=== PATIENT | female | born 1940 | race Caucasian/White ===

== ENCOUNTER 2017-11-11 10:32 | Inpatient (IN) | payer MEDICARE, BC ==
[~2017-11-11] VITALS: Ht 160 cm; Wt 81.8 kg
[2017-11-11 11:26] LABS: BASOPHILS # (AUTO) 0.2 X10'3 (0-0.2); BASOPHILS % (AUTO) 1.8 % (0-1); EOSINOPHILS # (AUTO) 0.1 X10'3 (0-0.9); EOSINOPHILS % (AUTO) 1.2 % (0-6); HEMOGLOBIN 13.7 g/dl (12.0-16.0); LYMPHOCYTES # (AUTO) 2.4 X10'3 (1.1-4.8); MEAN CORPUSCULAR HEMOGLOBIN 25.7 PG (27.0-31.0); MEAN CORPUSCULAR HGB CONC 33.5 % (33.0-36.5); MEAN CORPUSCULAR VOLUME 76.9 FL (78-98); MONOCYTES # (AUTO) 0.5 X10'3 (0-0.9); MONOCYTES % (AUTO) 5.2 % (2-12); NEUTROPHILS # (AUTO) 6.7 X10'3 (1.8-7.7); NEUTROPHILS % (AUTO) 67.8 % (42-75); PLATELET COUNT 305 X10'3 (140-440); RED BLOOD COUNT 5.34 X10'6 (4.20-5.60); RED CELL DISTRIBUTION WIDTH 15.7 % (11.5-14.5); WHITE BLOOD COUNT 9.9 X10'3 (4.5-11.0)
[2017-11-11 11:36] LABS: PARTIAL THROMBOPLASTIN TIME 23 SECONDS (22-32); PROTHROMBIN TIME 10.1 SECONDS (9.0-12.0)
[2017-11-11 11:40] LABS: ALANINE AMINOTRANSFERASE 25 U/L (12-78); ALBUMIN 3.6 G/DL (3.4-5.0); ALBUMIN/GLOBULIN RATIO 0.9 (1.1-1.5); ALKALINE PHOSPHATASE 99 IU/L (46-116); ANION GAP 8 (8-16); ASPARTATE AMINO TRANSFERASE 21 U/L (10-37); BILIRUBIN,TOTAL 0.5 MG/DL (0.1-1.0); BLOOD UREA NITROGEN 21 MG/DL (7-18); BUN/CREATININE RATIO 17.8 (6.6-38.0); CALCIUM 9.4 MG/DL (8.5-10.1); CHLORIDE 99 MMOL/L (99-107); CREATININE 1.18 MG/DL (0.40-0.90); GLUCOSE 148 MG/DL (70-104); POTASSIUM 3.7 MMOL/L (3.5-5.1); SODIUM 137 MMOL/L (135-145); TOTAL CARBON DIOXIDE 29.9 MMOL/L (24-32); TOTAL PROTEIN 7.7 G/DL (6.4-8.2); eGFR 44 ML/MIN
[2017-11-11] MEDS ORDERED: potassium Cl 40MEQ/NS 500ml 500 ML IV PRN ×2 (12:45)
[2017-11-11] MEDS ORDERED: magnesium hydroxide 30ml (MOM) UD suspension PO PRN (12:45)
[2017-11-11] MEDS ORDERED: magnesium 2GM in 50ml NS 50 ML IV PRN (12:45)
[2017-11-11] MEDS ORDERED: magnesium 4gm in 100ml NS 100 ML IV PRN (12:45)
[2017-11-11] MEDS ORDERED: potassium Cl 20 mEq SR tablet PO PRN ×2 (12:45)
[2017-11-11] MEDS ORDERED: morphine 4 MG/ML inj SYRINge IV PRN (12:45)
[2017-11-11] MEDS ORDERED: acetaminophen 325mg tablet PO PRN (12:45)
[2017-11-11] MEDS ORDERED: mag hydrox/Alum hydrox/simeth 30ml oral suspension PO PRN (12:45)
[2017-11-11] MEDS ORDERED: magnesium Cl slow-release 64mg tablet PO PRN (12:45)
[2017-11-11] MEDS ORDERED: HYDROcodone/acetaminophen 5mg/325mg tablet PO PRN (12:45)
[2017-11-11] MEDS ORDERED: ondansetron/PF 4mg/2ml inj IV PRN (12:45)
[2017-11-11] MEDS ORDERED: HYDROcodone/acetaminophen 10/325mg tab PO PRN (12:45)
[2017-11-11] MEDS: normal saline 1000ml 1,000 ML IV SCH ×2 (13:20→20:36)
[2017-11-11] MEDS ORDERED: ESOM40CA30 PO (13:28)
[2017-11-11] MEDS ORDERED: VALS320T13 PO (13:29)
[2017-11-11] MEDS ORDERED: ROSU5TAB PO (13:30)
[2017-11-11] MEDS ORDERED: CHOL5000 PO (13:31)
[2017-11-11] MEDS ORDERED: ROSU10TA PO (13:31)
[2017-11-11] MEDS ORDERED: LEVO125T PO (13:31)
[2017-11-11] MEDS ORDERED: IBUP100O19 PO (13:32)
[2017-11-11] MEDS ORDERED: IBUP-2264 PO (17:00)
[2017-11-11 20:05] VITALS: BP 160/78
[2017-11-12 02:30] VITALS: BP 129/71
[2017-11-12 05:00] VITALS: BP 133/63
[2017-11-12 05:40] LABS: BASOPHILS % (AUTO) 0.4 % (0-1); EOSINOPHILS # (AUTO) 0.2 X10'3 (0-0.9); HEMATOCRIT 38.5 % (35.0-45.0); HEMOGLOBIN 13.1 g/dl (12.0-16.0); MEAN CORPUSCULAR HEMOGLOBIN 26.2 PG (27.0-31.0); MEAN CORPUSCULAR HGB CONC 34.1 % (33.0-36.5); MONOCYTES # (AUTO) 0.6 X10'3 (0-0.9); MONOCYTES % (AUTO) 6.3 % (2-12); NEUTROPHILS # (AUTO) 6.5 X10'3 (1.8-7.7); NEUTROPHILS % (AUTO) 69.3 % (42-75); PLATELET COUNT 282 X10'3 (140-440); RED CELL DISTRIBUTION WIDTH 14.8 % (11.5-14.5); WHITE BLOOD COUNT 9.3 X10'3 (4.5-11.0)
[2017-11-12 05:45] LABS: PROTHROMBIN TIME 10.4 SECONDS (9.0-12.0)
[2017-11-12 05:58] LABS: ANION GAP 7 (8-16); BLOOD UREA NITROGEN 21 MG/DL (7-18); BUN/CREATININE RATIO 19.8 (6.6-38.0); CHLORIDE 102 MMOL/L (99-107); CREATININE 1.06 MG/DL (0.40-0.90); GLUCOSE 104 MG/DL (70-104); MAGNESIUM 1.9 MG/DL (1.5-2.4); POTASSIUM 3.7 MMOL/L (3.5-5.1); SODIUM 140 MMOL/L (135-145); TOTAL CARBON DIOXIDE 30.8 MMOL/L (24-32); eGFR 50 ML/MIN
[2017-11-12] MEDS ORDERED: K and/or MAG REPLACEMENT MC SCH (08:00)
[2017-11-12] MEDS ORDERED: pantoprazole 40 MG vial IV SCH (08:00)
[2017-11-12] MEDS ORDERED: lisinopril 10 MG tablet PO SCH (08:00)
[2017-11-12] MEDS ORDERED: levoTHYROXINE 125mcg tablet PO SCH (08:00)
[2017-11-12 10:00] VITALS: BP_SYST 132; BP_SYST 134; BP_SYST 139; BP_DIAS 64; BP_DIAS 67; BP_DIAS 69
[2017-11-12] MEDS ORDERED: atorvastatin 20mg tablet PO SCH (17:00)
[2017-11-13] MEDS ORDERED: non-formulary drug (Esomeprazole Magnesium (Nexium) 1 CAP) PO SCH (08:00)
== END 2017-11-12 14:20 | disposition home or self-care (01) | DRG 312 ==
LOC: ER 10:32 → ED HOLD 12:42 → ORTHO 4S 20:05
PROVIDERS: ADMIT Family Medicine; ATTEND Internal Medicine
DX: R55 Syncope and collapse (principal); E03.9 Hypothyroidism, unspecified; E78.00 Pure hypercholesterolemia, unspecified; I10 Essential (primary) hypertension; K21.9 Gastro-esophageal reflux disease without esophagitis; F17.200 Nicotine dependence, unspecified, uncomplicated; Z90.2 Acquired absence of lung [part of]; Z85.118 Personal history of other malignant neoplasm of bronchus and lung; Z85.038 Personal history of other malignant neoplasm of large intestine
CPT/HCPCS: 36415; 70450; 70551; 71045; 80048; 80053; 83735; 84443; 84484; 85025; 85610; 85730; 87070; 93005; 93306; 93880; 99285; C9113; J7030

== ENCOUNTER 2025-07-30 18:41 | Emergency (ER) | payer MEDICARE, BC ==
[~2025-07-30] VITALS: Ht 160 cm; Wt 59.6 kg
[~2025-07-30 18:41] MED LIST: ACET-864 PO; ALEVE; CAND1TAB17 PO; LEVO75TA PO; ROSU5TAB51 PO; TYLENOL
--- NOTE | 2025-07-30 18:54 | ELECTROCARDIOGRAPH REPORT ---
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 Abdiel Gonzalez Measurements Intervals [place] Rate: 84 P: 50 FL: 166 QRS: 51 QRSD: 95 T: 39 QT: 361 QTc: 427 Interpretive Statements Sinus rhythm Probable left atrial enlargement Baseline wander in lead(s) V2 Electronically Signed On 07-30-2025 19:41:[address] Abdiel Gonzalez Please click the below link to view image of tracing.
--- NOTE | 2025-07-30 19:17 | RADIOLOGY REPORT ---
CHEST RADIOGRAPH Indication: CP Technique: Single frontal view of the chest was obtained COMPARISON: None FINDINGS: Minor blunting of the right lateral costophrenic angle. Cardiac silhouette is within normal limits. Bones and soft tissues demonstrate no significant abnormality. IMPRESSION: Minor blunting of the right lateral costophrenic angle which could be related to trace fluid or scarring. This appears grossly stable.
[2025-07-30 19:30] LABS: MEAN PLATELET VOLUME 5.9 FL (7.4-10.4); RED CELL DISTRIBUTION WIDTH 16.9 % (11.5-14.5)
[2025-07-30] MEDS: HYDROcodone/acetaminophen 5mg/325mg tablet PO ONE ×2 (19:41→23:05)
[2025-07-30 19:50] LABS: CREATININE 1.54 MG/DL (0.40-0.90); PRO BRAIN NATRIURETIC PEPTIDE 1350 PG/ML (0-450); TOTAL CARBON DIOXIDE 28.0 MMOL/L (24-32); eCRCL 22 ML/MIN; eGFR 32 ML/MIN
--- NOTE | 2025-07-30 20:40 | RADIOLOGY REPORT ---
Exam: CT CT CHEST ABDOMEN PELVIS History: intractable thorasic, lumbar and chest pain, right posterior ribs Comparison Study: DI CHEST,SINGLE VIEW on DOS: 07/30/25, CTA CHEST on DOS: 09/12/22, CHEST,SINGLE VIEW on DOS: 09/12/22 Technique: Multidetector spiral CT of the chest, abdomen and pelvis was performed from lower neck to pubic symphysis. Intravenous contrast was administered during this examination. Portal venous imaging was obtained. Axial, coronal and sagittal multiplanar reformats were performed by the technologist on a separate workstation. Radiation Dose : 1. Chest/Abdomen/Pelvis: CTDIvol 21.97 mGy, DLP 1403.52 mGy*cm. Findings: Lower neck: Normal thyroid. Lungs: No focal consolidation, pleural effusion or pneumothorax. Heart/Vascular Structures: Normal heart size. No pericardial effusion. Coronary calcifications. Lymph Nodes: No adenopathy Pleura: No pleural effusion or significant pneumothorax. Liver: The liver is normal in size. No focal lesions. Normal hepatic vascular enhancement. Gallbladder and Biliary Tree: Gallbladder is surgically absent. Spleen: Unremarkable Pancreas: The pancreas is normal in appearance without focal lesions or abnormal enhancement. Adrenal Glands: Unremarkable Kidneys: Kidneys demonstrate normal symmetric enhancement without focal lesions, calculi or hydronephrosis. Bladder: Unremarkable Bowel: The stomach is grossly normal in appearance. Small bowel and colon are normal in caliber and distribution. The appendix is not visualized; however, no secondary findings of acute appendicitis identified. Ascites: Absent Lymphadenopathy: No mesenteric, retroperitoneal or periportal lymphadenopathy. Abdominal Wall and Mesentery: Unremarkable. Vasculature: The visualized abdominal aorta is normal in size and caliber. Abdominal and pelvic vessels demonstrate normal enhancement. Pelvic Organs: Unremarkable Musculoskeletal: Diffuse predominantly lytic osseous metastatic disease. IMPRESSION: No acute findings involving the chest, abdomen or pelvis. Diffuse osseous metastatic disease.
[2025-07-30 21:21] VITALS: BP 154/76; PULSE 78; TEMP 97.4; O2SAT 97
--- NOTE | 2025-07-30 22:15 | Physician Documentation ---
History of Present Illness ~ Chief Complaint: Back Pain Stated Complaint: BACK PAIN Time Seen by MD: 19:19 OK to notify your PCP?: Yes Primary Medical Doctor: lanny brand Source: patient, RN/, RN notes reviewed, old records Mode of Arrival: POV Exam Limitations: no limitations HPI This pleasant 84-year-old female has a history of colon cancer had radiation treatment several years ago. The patient comes into the hospital today because she was having severe intractable back pain. She states it hurts with moving. It seemed to have gotten worse today but has been going on a few days. She came in for evaluation there was no trauma no fall no other complaints. No bowel or bladder incontinence. After talking to the family patient has a history of colon cancer as well as breast cancer status post lobectomy. She is supposed to be cancer free from the breast cancer as of two years ago. There has been no weight gain or weight loss. Medication Reconciliation Allergies: Coded Allergies: No Known Allergies (Unverified , 09/12/22) Scheduled Acetaminophen/Dp-Hydram Hcl (Tylenol P.m. Ex-Str Caplet), 1 TAB PO HS, (Reported) Candesartan/Hydrochlorothiazid (Candesartan-Hctz 32-12.5 mg Tb), 1 TAB PO DAILY, (Reported) Levothyroxine Sodium* (Synthroid*), 1 TAB PO DAILY, (Reported) Rosuvastatin Calcium (Rosuvastatin Calcium), 1 TAB PO DAILY, (Reported) Scheduled PRN [Aleve], for pain, (Reported) [Tylenol], for pain, (Reported) Past Medical History Past Medical History: High Cholesterol, Hypertension, GERD, Hypothyroidism, Colon Cancer Past Surgical History: other Other Past Surgical History: right lobectomy Smoking Status: Never smoker Alcohol Use: None Drug Use: none Review of Systems All Other Systems at this time: Reviewed and Negative Physical Exam Physical Exam Vital Signs: RN Vital Signs have been reviewed: Yes, Temperature: 97.4, Source: Oral, Heart Rate: 78, Respiratory Rate: 16, BP: 154/76, Pulse Oximetry: 97, Weight: 59.600 Oxygen Flow Rate: 0 Physical Exam General: The patient is well developed, well nourished, nontoxic appearing and is in no acute distress while still Skin: [place], warm and dry with no rashes. HEENT: Head was normocephalic and atraumatic. Eyes - pupils equal, round, reactive to light and accommodation. Extraocular movements were intact. Conjun ctivae were nonicteric. The mouth and oropharynx were clear with moist mucous membranes. There were no pharyngeal exudates or erythema. Neck: Supple and nontender. There was no jugular venous distention, lymphadenopathy, thyromegaly or masses. Chest: Clear to auscultation bilaterally without wheezes, rales or rhonchi. No accessory muscle use. No dullness to percussion. Heart: Rate regular and rhythmic. S1, S2. No murmurs. Palpation of the chest wall was normal. No rubs or thrills. Abdomen: Soft, nontender and nondistended. Positive bowel sounds. No guarding or rebound. No hepatosplenomegaly or palpable masses. Back: Back was palpated. She has diffuse pain mostly on the left flank rib pain. No point tenderness however discomfort with movement Extremities: No cyanosis, clubbing or edema. The patient moves all extremities. Pulses were equal and symmetric. Neurologic: Motor sensory grossly intact Psychologic: The patient was oriented to person, place and time. The patient demonstrated appropriate judgement and insight. Progress Results/Orders Reviewed/noted all lab results: Yes Results/Orders Orders - ABDIEL SALGADO MD Chest,Single View (07/30/25 18:48) Monitor (07/30/25 18:48) Saline Lock (07/30/25 18:48) Oxygen (07/30/25 18:48) Electrocardiogram (07/30/25 18:48) Hs Troponin I W Calculations (07/30/25 20:48) Hs Troponin I W Calculations (07/30/25 21:48) Ct Chest Abdomen Pelvis (07/30/25 20:10) Completed Orders - ABDIEL SALGADO MD Chest,Single View (07/30/25 18:48) Cbc/Diff (07/30/25 18:48) BMP (07/30/25 18:48) PBNP (07/30/25 18:48) Electrocardiogram (07/30/25 18:48) Hs Troponin I W Calculations (07/30/25 18:48) Ct Chest Abdomen Pelvis (07/30/25 20:10) Hydrocodone/Apap 5/325mg Tab (Jackman 5/32 (07/30/25 19:35) Medications Received in ER Medications (Trade) Dose Ordered Sig/Contreras Route PRN Reason Start Time Stop Time Status Last Admin Dose Admin (Jackman 5/325mg tablet) 1 tab ONCE ONCE PO 07/30/25 19:35 07/30/25 19:36 DC 07/30/25 19:41 1 TAB Vital Signs 07/30/25 07/30/25 18:43 21:21 Temp 97.4 97.4 Pulse 90 78 Resp 16 16 B/P (MAP) 180/84 154/76 (102) Pulse Ox 94 97 O2 Flow Rate 0 0 Laboratory Tests Test 07/30/25 19:11 07/30/25 21:56 White Blood Count 8.2 Red Blood Count 5.21 Hemoglobin 13.3 Hematocrit 40.3 Mean Corpuscular Volume 77.5 L Mean Corpuscular Hemoglobin 25.5 L Mean Corpuscular Hemoglobin Concent 32.9 L Red Cell Distribution Width 16.9 H Platelet Count 255 Mean Platelet Volume 5.9 L Neutrophils (%) (Auto) 60.2 Lymphocytes (%) (Auto) 30.6 Monocytes (%) (Auto) 6.7 Eosinophils (%) (Auto) 1.2 Basophils (%) (Auto) 1.3 H Neutrophils # (Auto) 4.9 Lymphocytes # (Auto) 2.5 Monocytes # (Auto) 0.6 Eosinophils # (Auto) 0.1 Basophils # (Auto) 0.1 CBC Comment Sodium Level 134 L Potassium Level 5.1 Chloride Level 97 L Carbon Dioxide Level 28.0 Anion Gap 9 Blood Urea Nitrogen 30 H Creatinine 1.54 H Estimated GFR/1.73 m2 32 BUN/Creatinine Ratio 19.5 Glucose Level 108 H Calcium Level 8.8 Troponin I High Sensitivity 6 Pro-B-Type Natriuretic Peptide 1350 H Albumin 3.2 L Chemistry Comments Re-Evaluation Re-Evaluation : Re-Evaluation: Improved Progress Patient is feeling much better. Patient received Jackman we will receive another one before discharge. I discussed the case with the family they need an emergent PET scan she has a MRI scheduled which they should not canceled but should not delay care for PET scan which can then go to her oncologist. Patient does need a referral for Oncology. Patient was then given discharge instructio ns. 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 Abdiel Salgado Measurements Intervals [place] Rate: 84 P: 50 [place]: 166 QRS: 51 QRSD: 95 T: 39 QT: 361 QTc: 427 Interpretive Statements Sinus rhythm Probable left atrial enlargement Baseline wander in lead(s) V2 Electronically Signed On 07-30-2025 19:41:[address] Abdiel Salgado Please click the below link to view image of tracing. Chest X-Ray : Additional Comments CHEST RADIOGRAPH Indication: CP Technique: Single frontal view of the chest was obtained COMPARISON: None FINDINGS: Minor blunting of the right lateral costophrenic angle. Cardiac silhouette is within normal limits. Bones and soft tissues demonstrate no significant abnormality. IMPRESSION: Minor blunting of the right lateral costophrenic angle which could be related to trace fluid or scarring. This appears grossly stable. Electronically Signed by:PERRY CASTRO MD CT : CT: abdomen/pelvis Impression Exam: CT CT CHEST ABDOMEN PELVIS History: intractable thorasic, lumbar and chest pain, right posterior ribs Comparison Study: DI CHEST,SINGLE VIEW on DOS: 07/30/25, CTA CHEST on DOS: 09/12/22, CHEST,SINGLE VIEW on DOS: 09/12/22 Technique: Multidetector spiral CT of the chest, abdomen and pelvis was performed from lower neck to pubic symphysis. Intravenous contrast was administered during this examination. Portal venous imaging was obtained. Axial, coronal and sagittal multiplanar reformats were performed by the technologist on a separate workstation. Radiation Dose : 1. Chest/Abdomen/Pelvis: CTDIvol 21.97 mGy, DLP 1403.52 mGy*cm. Findings: Lower neck: Normal thyroid. Lungs: No focal consolidation, pleural effusion or pneumothorax. Heart/Vascular Structures: Normal heart size. No pericardial effusion. Coronary calcifications. Lymph Nodes: No adenopathy Pleura: No pleural effusion or significant pneumothorax. Liver: The liver is normal in size. No focal lesions. Normal hepatic vascular enhancement. Gallbladder and Biliary Tree: Gallbladder is surgically absent. Spleen: Unremarkable Pancreas: The pancreas is normal in appearance without focal lesions or abnormal enhancement. Adrenal Glands: Unremarkable Kidneys: Kidneys demonstrate normal symmetric enhancement without focal lesions, calculi or hydronephrosis. Bladder: Unremarkable Bowel: The stomach is grossly normal in appearance. Small bowel and colon are normal in caliber and distribution. The appendix is not visualized; however, no secondary findings of acute appendicitis identified. Ascites: Absent Lymphadenopathy: No mesenteric, retroperitoneal or periportal lymphadenopathy. Abdominal Wall and Mesentery: Unremarkable. Vasculature: The visualized abdominal aorta is normal in size and caliber. Abdominal and pelvic vessels demonstrate normal enhancement. Pelvic Organs: Unremarkable Musculoskeletal: Diffuse predominantly lytic osseous metastatic disease. IMPRESSION: No acute findings involving the chest, abdomen or pelvis. Diffuse osseous metastatic disease. Electronically Signed by:PERRY CASTRO MD Date & Time: 07/30/252036 Medical Decision Making Additional information obtaine: old records Findings Metastatic cancer. Differential Dx:Considerations: AAA, Aortic dissection, Appendicitis, DJD, Fracture, Musculoskeletal pain, Strain, Other Departure Disposition: 01 HOME / SELF CARE / HOMELESS Impression: Primary Impression: Lytic bone lesions on xray Additional Impressions: Low back pain Qualified Codes: M54.50 - Low back pain, unspecified History of breast cancer History of colon cancer Condition: Stable Discharge Instructions: Acute Back Pain, Adult Referrals: NO PRIMARY CARE PROVIDER (PCP) Education Educated: Patient Educated regarding: diagnosis, treatment, need for follow up, other Signature Scribe Signature: The note accurately reflects work and decisions made by me.Abdiel Salgado MD 07/30/25 22:17 Attestation: The note accurately reflects work and decisions made by me.Abdiel Salgado MD 07/30/25 22:17 ABDIEL SALGADO MD Jul 30, 2025 22:15
[2025-07-30] MEDS ORDERED: HYDR-3965 PO (22:40)
[2025-07-30 23:05] VITALS: RESP 20
== END 2025-07-30 23:10 | disposition home or self-care (01) ==
LOC: ER 18:41
DX: M54.50 Low back pain, unspecified (principal); R06.02 Shortness of breath; E03.9 Hypothyroidism, unspecified; E78.00 Pure hypercholesterolemia, unspecified; K21.9 Gastro-esophageal reflux disease without esophagitis; I10 Essential (primary) hypertension; Z85.3 Personal history of malignant neoplasm of breast; Z85.038 Personal history of other malignant neoplasm of large intestine
CPT/HCPCS: 36415; 71045; 71250; 74176; 80048; 83880; 84484; 85025; 93005; 99285